=== PATIENT | female | born 1955 | race Caucasian/White ===

== ENCOUNTER 2019-02-09 04:54 | Emergency (ER) | payer OTHER | END 2019-02-09 05:25 | disposition home or self-care (01) | LOC: E/R 04:54 | DX: H66.92 Otitis media, unspecified, left ear (principal); H57.89 Other specified disorders of eye and adnexa; R05 Cough; I10 Essential (primary) hypertension; E11.9 Type 2 diabetes mellitus without complications; Z79.84 Long term (current) use of oral hypoglycemic drugs | CPT/HCPCS: 99283; Z7502 ==